=== PATIENT | female | born 1950 | race Caucasian/White ===

== ENCOUNTER 2017-03-15 22:58 | Emergency (ER) | payer OTHER ==
[~2017-03-15] VITALS: Ht 160 cm; Wt 75.0 kg
[~2017-03-15 22:58] MED LIST: CALC1TAB53 PO; COZA50TA PO; FISH100020 PO; IBUP-232 PO; METO50TA PO; VITA100T65 PO
[2017-03-15 23:01] VITALS: BP 183/95; PULSE 66; RESP 18; TEMP 97.9; O2SAT 95
[2017-03-15] MEDS ORDERED: ZOLP10TA3 PO (23:24)
[2017-03-15] MEDS ORDERED: LOSA50TA PO (23:24)
[2017-03-15] MEDS ORDERED: METO50TA PO (23:24)
[2017-03-15 23:29] VITALS: BP 175/89; PULSE 64; RESP 20; O2SAT 96
--- NOTE | 2017-03-15 23:44 | PD ---
HPI . 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 She was subsequently brought to the emergency department for evaluation. She states that she just feels like she cannot walk normally. She states that she feels "drunk." The nurse has been able to ascertain that she probably inadvertently took an Ambien at 9:00 tonight rather than her losartan. The patient has no other complaints. PFSH Past Medical History Diminished Hearing: No Hypertension: Yes Tetanus Vaccination: Unknown Influenza Vaccination: Yes ?: Not Menopausal: Yes : 1 Para: 1 Past Surgical History Cholecystectomy: Yes Social History Alcohol Use: No Tobacco Use: No Substance Use: No Allergies-Medications (Allergen,Severity, Reaction): Coded Allergies: penicillin G (Unverified Allergy, Intermediate, Rash, 03/15/17) Reported Meds & Prescriptions Reported Meds & Active Scripts Active Reported Zolpidem (Zolpidem Tartrate) 10 Mg Tab 10 Mg PO HS PRN Losartan (Losartan Potassium) 50 Mg Tab 50 Mg PO BID Metoprolol Tartrate 50 Mg Tab 50 Mg PO BID Review of Systems Except as stated in HPI: all other systems reviewed are Neg Neurologic: Positive: Change in Mentation Physical Exam Narrative GENERAL: Awake and alert and in no acute distress. SKIN: warm/dry. HEAD: Normocephalic. Atraumatic. EYES: Pupils equal and round. No scleral icterus. No injection or drainage. ENT: No nasal bleeding or discharge. Mucous membranes pink and moist. NECK: Trachea midline. Full range of motion without pain.. CARDIOVASCULAR: Regular rate and rhythm. Heart sounds normal. RESPIRATORY: No accessory muscle use. Clear to auscultation. Breath sounds equal bilaterally. GASTROINTESTINAL: Abdomen soft. Nontender. Bowel sounds present. Nondistended. MUSCULOSKELETAL: No obvious deformities. NEUROLOGICAL: Awake and alert. No obvious cranial nerve deficits. Motor grossly within normal limits. Normal speech. PSYCHIATRIC: Appropriate mood and affect; insight and judgment normal. 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 She was subsequently noted to be acting abnormally per her coworkers. She was brought to us for evaluation. She has no complaints at this time other than feeling "drunk." Her is on his way to pick her up. Diagnosis Primary Impression: Altered mental status Qualified Codes: R40.4 - Transient alteration of awareness Disposition: 01 DISCHARGE HOME Condition: Stable Nora Mary MD Mar 15, 2017 23:44
[2017-03-15] MEDS ORDERED: LOSARTAN 50 MG TAB PO ONE (23:45)
[2017-03-16 00:54] VITALS: BP 166/87; PULSE 64; RESP 13; O2SAT 96
[2017-03-16 01:39] VITALS: BP 167/94; PULSE 65; RESP 17; O2SAT 96
== END 2017-03-16 01:41 | disposition home or self-care (01) ==
LOC: NEPC 22:58
DX: R41.82 Altered mental status, unspecified (principal); I10 Essential (primary) hypertension; Z79.899 Other long term (current) drug therapy; Z88.0 Allergy status to penicillin
CPT/HCPCS: 99283

== ENCOUNTER 2017-10-28 00:04 | Observation (INO) ==
--- NOTE | 2017-10-28 00:43 | ED ---
HPI General Chief Complaint: Arrhythmia/Palpitations Stated Complaint: high blood pressure x today Time Seen by Provider: 10/28/17 00:36 Source: patient Mode of arrival: ambulatory Limitations: no limitations History of Present Illness HPI narrative: Chief complaint is her heart pounding. Onset (ago): hour(s) (2) Duration: constant Context: occurred during rest Associated symptoms: other (Anterior neck pain) Treatments prior to arrival: other (Blood pressure medications) Related Data Home Medications Medication Instructions Recorded Confirmed captopril 12.5 mg PO DAILY 10/28/17 10/28/17 clonidine HCl 0.1 mg PO BID 10/28/17 10/28/17 lisinopril 20 mg PO DAILY 10/28/17 10/28/17 losartan 50 mg PO DAILY 10/28/17 10/28/17 metoprolol tartrate 50 mg PO BID 10/28/17 10/28/17 Allergies Allergy/AdvReac Type Severity Reaction Status Date / Time penicillin G Allergy Intermediate Rash Verified 10/28/17 00:15 metoclopramide [From Reglan] Allergy Swelling Verified 10/28/17 00:17 Review of Systems Except as stated in HPI: all other systems reviewed are negative [facility] Medical History Medical History Dental root implant present (Acute) HTN (hypertension) (Acute) Social History Social History Substance History: No History of Abuse Second Hand Smoke Exposure: No Smoking Status: Never smoker How Often Do You Have a Drink Containing Alcohol: Never Recent Travel in [facility] within the Last 8 Weeks: No Recent Out of Country Travel within the Last 8 Weeks: No Immunization History Tetanus Immunization: Unsure Hx Influenza Vaccine This Season: No Exam Const General: cooperative, healthy appearing, comfortable, no acute distress, well developed and well groomed [facility] Head: normal to inspection, normocephalic and atraumatic Eyes General: appearance normal, both eyes and all related structures Conjunctivae: conjunctivae normal Sclera: sclerae normal Pupils: PERRL EOM: EOM intact bilaterally Neck Neck: normal visual inspection and full ROM Chest Chest: normal inspection of the chest Resp Effort & Inspection: normal respiratory effort and able to speak in complete sentences Auscultation: clear to auscultation bilaterally Cardio Rate: regular rate Heart Sounds: S1 normal and S2 normal Back/Spine/Pelvis Thoracic/Lumbar Spine: thoraco-lumbar ROM normal Skin General: no rashes or lesions noted and turgor normal Neuro General: alert, awake, oriented x3, moves all extremities and CN's II-XI intact bilaterally Extrem General: normal to inspection and full ROM Right upper extremity: edema (trace) Psych Appearance: grossly normal and well kempt Mental Status: mental status grossly normal Speech and Movement: speech and movement normal Mood: congruent mood Affect: normal affect Attitude: cooperative Thought Process: normal Thought Content: normal Judgment: judgment good Course Reevaluation(s) Reevaluation #1: Her blood pressure came down nicely with Nitropaste. I had ordered metoprolol as well but it was held because her heart rate was less than 80. The patient states that the pounding in her chest has resolved as her blood pressure has come down. Consultations Consultation #1: Dr. Allen Time: 03:41 Initial Documented Vital Signs Temperature 97.8 F 10/28/17 00:09 Pulse Rate 68 10/28/17 00:09 Respiratory Rate 18 10/28/17 00:09 Blood Pressure 220/120 H 10/28/17 00:09 Pulse Oximetry 99 10/28/17 00:09 Last Documented Vital Signs Temperature 97.8 F 10/28/17 00:09 Pulse Rate 68 10/28/17 03:49 Respiratory Rate 16 10/28/17 03:49 Blood Pressure 165/95 H 10/28/17 03:49 Pulse Oximetry 96 10/28/17 02:05 Critical Care Time Critical Care Time: Yes Total Critical Care Time: 45 Attestation: Time to perform other separately billable procedures was not included in the critical care time. My time did not include minutes spent treating any other patients simultaneously or on activities that did not directly contribute to the patient's treatment. The services I provided to this patient were to treat and/or prevent clinically significant deterioration due to markedly elevated blood pressure with associated neck discomfort I provided critical care services requiring my management, as noted below: Chart data review, documentation time, medication orders and management, vital sign assessments/reviewing monitor data, ordering and reviewing lab tests, ordering and interpreting/reviewing x-rays and diagnostic studies, care of the patient and discussion of the patient with the admitting physicians Medical Decision Making MDM Narrative Medical decision making narrative: This patient presents with a chief complaint of pounding in her chest. She is also complaining with some anterior neck discomfort. She is markedly hypertensive. Chest pain evaluation is in progress. She is being treated with IV metoprolol and transdermal Nitropaste. I anticipate eventual admission for hypertensive urgency. Differential Diagnosis Differential Diagnosis: Differential diagnosis of palpitations includes but is not limited to anxiety, SVT, aVF with RVR, VT, sinus tachycardia, PVCs Lab Data Lab results reviewed: Yes I reviewed the patient's lab results. Result diagrams: 10/28/17 00:40 10/28/17 00:40 Lab Results 10/28/17 10/28/17 10/28/17 Range/Units 00:40 00:40 00:40 CBC w Diff Auto diff final WBC 7.1 (4.0-11.0) th/mm3 RBC 5.15 (4.00-5.30) mil/mm3 Hgb 15.6 H (11.6-15.3) gm/dL Hct 47.5 H (35.0-46.0) % MCV 92.2 (80.0-100.0) fL MCH 30.2 (27.0-34.0) pg MCHC 32.8 (32.0-36.0) % RDW 12.8 (11.6-17.2) % Plt Count 294 (150-450) th/mm3 MPV 8.9 (7.0-11.0) fL Neut % (Auto) 53.8 (16.0-70.0) % Lymph % (Auto) 32.5 (9.0-44.0) % Robertson % (Auto) 8.8 H (0.0-8.0) % Eos % (Auto) 3.3 (0.0-4.0) % Baso % (Auto) 1.6 (0.0-2.0) % Neut # (Auto) 3.9 (1.8-7.7) th/mm3 Lymph # (Auto) 2.3 (1.0-4.8) th/mm3 Robertson # (Auto) 0.6 (0.0-0.9) th/mm3 Eos # (Auto) 0.2 (0.0-0.4) th/mm3 Baso # (Auto) 0.1 (0.0-0.2) th/mm3 WBC Differential . Differential Comment . D-Dimer Quant (PE/DVT) 0.56 H (0.00-0.50) mg/L FEU Sodium 139 (136-145) meq/L Potassium 3.9 (3.5-5.1) meq/L Chloride 105 (98-107) meq/L Carbon Dioxide 29.0 (21.0-32.0) meq/L Anion Gap 5 (5-15) meq/L BUN 18 (7-18) mg/dL Creatinine 0.91 (0.50-1.00) mg/dL Estimated GFR 62 L (>89) mL/min Random Glucose 96 (74-106) mg/dL Calcium 8.5 (8.5-10.1) mg/dL Troponin I Less than 0.02 L (0.02-0.05) ng/mL Imaging Data Attestation: I personally reviewed and interpreted this imaging study as follows : Radiologist's impression: Chest X-Ray 10/28/17 00:19 CONCLUSION: No acute cardiopulmonary process to explain current clinical symptoms Chest CTA 10/28/17 01:56 CONCLUSION: 1. Minimal pericardial effusion. 2. Otherwise negative. No acute infiltrate or pulmonary embolus. ECG Data EKG Prior to Arrival: No Attestation: I personally reviewed and interpreted this ECG as follows: (EKG shows a normal sinus rhythm with a rate of 69. No acute STT wave changes. EKG #2 is unchanged.) Discharge Plan Discharge Disposition Patient Disposition: 30 Still Patient Discharge Details Diagnosis: Hypertensive urgency Physicians Team ED Provider: Nora Mary Primary Care Provider: Benny Peñaloza V Attending Provider: Sunshine Allen Status ED Status: Admitted Observation Patient
[2017-10-28] MEDS: Metoprolol Inj 5 MG/5 ML Vial IV.PUSH SCH (00:53)
[2017-10-28 01:01] LABS: Baso # (Auto) 0.1 th/mm3 (0.0-0.2); Baso % (Auto) 1.6 % (0.0-2.0); Eos # (Auto) 0.2 th/mm3 (0.0-0.4); Eos % (Auto) 3.3 % (0.0-4.0); Hematocrit 47.5 % (35.0-46.0); Hemoglobin 15.6 gm/dL (11.6-15.3); Lymph # (Auto) 2.3 th/mm3 (1.0-4.8); Lymph % (Auto) 32.5 % (9.0-44.0); Mean Corpuscular HGB Conc 32.8 % (32.0-36.0); Mean Corpuscular Hemoglobin 30.2 pg (27.0-34.0); Mean Corpuscular Volume 92.2 fL (80.0-100.0); Mean Platelet Volume 8.9 fL (7.0-11.0); Mono # (Auto) 0.6 th/mm3 (0.0-0.9); Mono % (Auto) 8.8 % (0.0-8.0); Neut # (Auto) 3.9 th/mm3 (1.8-7.7); Neut % (Auto) 53.8 % (16.0-70.0); Platelet Count 294 th/mm3 (150-450); Red Blood Count 5.15 mil/mm3 (4.00-5.30); Red Cell Distribution Width 12.8 % (11.6-17.2); White Blood Count 7.1 th/mm3 (4.0-11.0)
[2017-10-28 01:06] LABS: Chloride 105 meq/L (98-107); Potassium 3.9 meq/L (3.5-5.1); Sodium 139 meq/L (136-145)
[2017-10-28 01:09] LABS: Anion Gap 5 meq/L (5-15); Blood Urea Nitrogen 18 mg/dL (7-18); Calcium 8.5 mg/dL (8.5-10.1); Glucose,Random 96 mg/dL (74-106)
[2017-10-28 01:13] LABS: Glomerular Filtration Rate 62 mL/min (>89)
--- NOTE | 2017-10-28 01:48 | XR ---
EXAM DATE: 10/28/2017 12:36 AM EDT AGE/SEX: 67 years / Female INDICATIONS: Chest pain. CLINICAL DATA: This is the patient's initial encounter. Patient reports that signs and symptoms have been present for 1 day and indicates a pain score of 3/10. MEDICAL/SURGICAL HISTORY: Hypertension. None. COMPARISON: [facility], CHEST 1V SINGLE AP, 10/24/2017. . FINDINGS: A single AP view of the chest demonstrates the lungs to be symmetrically aerated without evidence of mass, infiltrate or effusion. The cardiomediastinal contours are unremarkable. Osseous structures a re intact. CONCLUSION: No acute cardiopulmonary process to explain current clinical symptoms Electronically signed by: Justus Brumfield MD 10/28/2017 1:47 AM EDT
--- NOTE | 2017-10-28 03:21 | CT ---
EXAM DATE: 10/28/2017 2:49 AM EDT AGE/SEX: 67 years / Female INDICATIONS: High blood pressure. CLINICAL DATA: This is the patient's initial encounter. Patient reports that signs and symptoms have been present for 1 week and indicates a pain score of 0/10. MEDICAL/SURGICAL HISTORY: Hypertension. Dental implant. . RADIATION DOSE: 17.22 CTDI (mGy) COMPARISON: [facility], CT CHEST W/O CONTRAST, 08/10/2015. . TECHNIQUE: Volumetric scanning was performed using a multi-row detector CT scanner during bolus infu mani of 74 ml Omnipaque 350 (iohexol) nonionic water-soluble contrast as a single exam dose. The tejal a was post processed with a variety of visualization algorithms including full volume maximum intensi ty projection and sliding thin slab reformation. Using automated exposure control and adjustment of the mA and/or kV according to patient size, radiation dose was kept as low as reasonably achievable t o obtain optimal diagnostic quality images. DICOM format image data is available electronically for review and comparison. FINDINGS: Pulmonary Arteries: No filling defects are seen in the pulmonary arteries out to the subsegmental ve ssels. The left and right pulmonary arteries are normal in diameter. Lung: No infiltrates seen. Effusion: None. Mediastinum: No evidence of mediastinal or hilar adenopathy. Tiny pericardial effusion. Other: The axilla is unremarkable. CONCLUSION: 1. Minimal pericardial effusion. 2. Otherwise negative. No acute infiltrate or pulmonary embolus. Electronically signed by: Justus Brumfield MD 10/28/2017 3:19 AM EDT
[2017-10-28] MEDS ORDERED: Bisacodyl 10 MG Supp RECTAL PRN (03:40)
[2017-10-28] MEDS ORDERED: Acetaminophen 325 MG Tablet PO PRN (03:40)
[2017-10-28] MEDS ORDERED: Temazepam 15 MG Capsule PO PRN (03:40)
[2017-10-28] MEDS: Heparin - SQ 10,000 UNITS/ML Vial SQ SCH ×3 (04:06→22:12)
[2017-10-28] MEDS: Sod Chloride 0.9% Inj 1,000 ML IV.CONT SCH ×2 (04:06→15:22)
[2017-10-28] MEDS: Senna/Docusate Sodium 8.6/50 MG Tablet PO SCH ×2 (08:45→22:12)
[2017-10-28] MEDS: Metoprolol Tartrate 50 MG Tablet PO SCH ×2 (08:45→22:11)
[2017-10-28] MEDS: Lisinopril 20 MG Tablet PO SCH (08:46)
[2017-10-28] MEDS: Captopril 12.5 MG Tablet PO SCH (08:49)
[2017-10-28] MEDS ORDERED: Ketorolac Inj 30 MG/ML (IVP) Vial IV.PUSH PRN (13:10)
[2017-10-28] MEDS ORDERED: Butalbital/APAP/Caff 50/325/40 MG Tablet PO PRN (13:11)
--- NOTE | 2017-10-28 16:16 | P.HP ---
History of Present Illness Primary Care Physician: Benny Peñaloza MD History of Present Illness: 67-year-old female with history of hypertension presented to the ER with systolic blood pressures of 220. She was in the ER recently with blood pressures up to 180. The reason that she presented however was not for her blood pressure but rather for her ear and neck pain. She feels pain in her bilateral ears with radiation to her neck. She states she has a sore throat and has painful lymphadenopathy anteriorly. She denies any fevers at home. Denies any exposure to strep throat. Review of Systems Constitutional: Reports fatigue, Reports headache(s), Denies body ache(s), Denies chills, Denies fever(s) Eyes: Denies blind spots, Denies blurry vision, Denies bulging eyes Ears, Nose, Mouth, and Throat: Reports ear pain, Reports headache(s), Reports sore throat, Denies bad breath, Denies change in voice, Denies ear discharge, Denies facial pain, Denies hearing loss, Denies hoarseness, Denies nasal congestion, Denies nasal discharge, Denies nasal obstruction, Denies sinus pressure Cardiovascular: Denies chest pain, Denies chest pain at rest, Denies chest pain with activity, Denies excessive sweating, Denies fainting, Denies fast heart rate, Denies foot swelling, Denies generalized swelling, Denies irregular heart rhythm, Denies leg pain with activity, Denies leg sores, Denies leg swelling, Denies lightheadedness, Denies radiating jaw, neck or arm pain, Denies rapid, pounding, or irregular heartbeat, Denies shortness of breath, Denies shortness of breath with activity, Denies shortness of breath when lying down, Denies shortness of breath causing sudden awakening, Denies slow heart rate, Denies other Respiratory: Denies change in phlegm color, Denies chest congestion, Denies cough, Denies coughing up blood, Denies excessive phlegm production, Denies pain on inspiration, Denies pain with cough, Denies shortness of breath, Denies shortness of breath with activity, Denies snoring, Denies stridor, Denies wheezing, Denies other Gastrointestinal: Denies abdominal pain, Denies belching, Denies black, tarry stools, Denies bloating, Denies bright, red blood in stools, Denies change in bowel habits, Denies constant urge to pass stool, Denies change in stools, Denies coffee ground vomit, Denies constipation, Denies cramping, Denies difficulty swallowing, Denies excessive passing of gas, Denies feeling full early, Denies heartburn, Denies incontinent of stools, Denies loose stools, Denies nausea, Denies pain with swallowing, Denies vomiting, Denies vomiting blood, Denies other Musculoskeletal: Denies abnormal walking, Denies back pain, Denies body aches, Denies decreased muscle mass, Denies deformity, Denies joint pain, Denies joint swelling, Denies limited joint movement, Denies loss of height, Denies muscle cramps, Denies muscle weakness, Denies neck pain, Denies numbness, Denies radiating pain into limb, Denies stiffness, Denies tingling, Denies other Neurologic: Denies abnormal hearing, Denies abnormal movements, Denies abnormal speech, Denies abnormal walking, Denies behavioral changes, Denies burning sensations, Denies confusion, Denies dizziness, Denies fainting, Denies frequent falls, Denies headache(s), Denies lack of coordination, Denies localized weakness, Denies loss of vision, Denies memory loss, Denies numbness, Denies other visual disturbances, Denies radiating pain, Denies restless legs, Denies convulsions, Denies seizure-like activity, Denies sensory deficit, Denies tingling, Denies tingling/numbness/burning sensations, Denies tremor(s), Denies unsteadiness, Denies weakness, Denies other Psychiatric: Denies abnormal sleep pattern, Denies anxiety, Denies behavioral changes, Denies change in appetite, Denies change in sex drive, Denies confusion , Denies depression, Denies difficulty concentrating, Denies hearing things others do not hear, Denies hopelessness, Denies irritability, Denies lack of enjoyment, Denies memory loss, Denies mood swings, Denies panic attacks, Denies paranoia, Denies seeing things others do not see, Denies sensing things others do not sense, Denies tactile hallucinations, Denies thoughts of hurting/killing others, Denies thoughts of hurting/killing yourself, Denies other PMFSH - History History Provided By: Patient - Medical History Medical History: Medical History (Last Reviewed 10/28/17 @ 00:37 by Nora Mary) Dental root implant present HTN (hypertension) - Tobacco History Second Hand Smoke Exposure: No Smoking Status: Never smoker - Alcohol History How Often Do You Have a Drink Containing Alcohol: Never - Substance Use History Substance History: No History of Abuse - Travel History Recent Travel in the [place] Within the Last 8 Weeks: No Recent Travel Out of the Country Within the Last 8 Weeks: No - Immunization History Tetanus Immunization: Unsure Hx Influenza Vaccine This Season: No Medications and Allergies Active Medications: Active Medications Acetaminophen (Tylenol) 650 mg PO Q4H PRN PRN Reason: Temp > 100.4 Acetaminophen/Butalbital/Caffeine (Fioricet 50-325-40) 1 tab PO Q6H PRN PRN Reason: HEADACHE Al Hydroxide/Mg Hydroxide (Milk Of Magnesia Liq) 30 ml PO Q12H PRN PRN Reason: Mild Constipation Bisacodyl (Dulcolax Supp) 10 mg RECTAL DAILY PRN PRN Reason: SEVERE CONSITIPATION Captopril (Capoten) 12.5 mg PO DAILY [facility] Last Admin: 10/28/17 08:49 Dose: 12.5 mg Clonidine HCl (Catapres) 0.1 mg PO BID [facility] Last Admin: 10/28/17 08:45 Dose: 0.1 mg Heparin Sodium (Porcine) (Heparin Inj) 5,000 units SQ Q8H [facility] Last Admin: 10/28/17 12:14 Dose: 5,000 units Sodium Chloride (Ns Inj) 1,000 mls @ 100 mls/hr IV.CONT .Q10H [facility] Last Admin: 10/28/17 15:22 Dose: 100 mls/hr Ketorolac Tromethamine (Toradol Inj) 15 mg IV.PUSH Q6H PRN PRN Reason: PAIN SCALE 6 TO 10 Stop: 11/02/17 13:09 Last Admin: 10/28/17 13:48 Dose: 15 mg Lactulose (Lactulose Liq) 30 ml PO DAILY PRN PRN Reason: SEVERE CONSITIPATION Lisinopril (Prinivil) 20 mg PO DAILY [facility] Last Admin: 10/28/17 08:46 Dose: 20 mg Losartan Potassium (Cozaar) 50 mg PO DAILY [facility] Last Admin: 10/28/17 08:46 Dose: 50 mg Metoprolol Tartrate (Lopressor) 50 mg PO BID [facility] Last Admin: 10/28/17 08:45 Dose: 50 mg Ondansetron HCl (Zofran Inj) 4 mg IV.PUSH Q6H PRN PRN Reason: NAUSEA OR VOMITING Last Admin: 10/28/17 10:41 Dose: 4 mg Senna/Docusate Sodium (Zulma-Colace) 1 tab PO BID [facility] Last Admin: 10/28/17 08:45 Dose: 1 tab Sennosides (Senokot) 17.2 mg PO Q12H PRN PRN Reason: Moderate Constipation Sodium Chloride (Ns Flush) 2 ml IV.FLUSH UNSCH PRN PRN Reason: FLUSH AFTER USING IV ACCESS Temazepam (Restoril) 15 mg PO HS PRN PRN Reason: INSOMNIA Allergies Allergy/AdvReac Type Severity Reaction Status Date / Time penicillin G Allergy Intermediate Rash Verified 10/28/17 00:15 metoclopramide [From Reglan] Allergy Swelling Verified 10/28/17 00:17 Home Medications Medication Instructions Recorded Confirmed Type captopril 12.5 mg PO DAILY 10/28/17 10/28/17 History clonidine HCl 0.1 mg PO BID 10/28/17 10/28/17 History lisinopril 20 mg PO DAILY 10/28/17 10/28/17 History losartan 50 mg PO DAILY 10/28/17 10/28/17 History metoprolol tartrate 50 mg PO BID 10/28/17 10/28/17 History Exam Vital signs: Vital Signs 10/28/17 00:09 10/28/17 00:19 10/28/17 01:03 Temperature 97.8 F Pulse Rate 68 71 63 Respiratory Rate 18 18 Blood Pressure 220/120 H 224/112 H 174/92 H Pulse Oximetry 99 98 97 10/28/17 01:20 10/28/17 02:05 10/28/17 03:49 Temperature Pulse Rate 60 68 Respiratory Rate 18 16 Blood Pressure 160/89 H 165/95 H Pulse Oximetry 97 96 10/28/17 04:17 10/28/17 07:00 10/28/17 08:00 Temperature 98.5 F 96.8 F L 96.9 F L Pulse Rate 62 60 65 Respiratory Rate 16 16 21 Blood Pressure 151/88 H 158/82 H 179/91 H Pulse Oximetry 98 96 96 10/28/17 12:00 Temperature 98.7 F Pulse Rate 59 L Respiratory Rate 20 Blood Pressure 125/69 Pulse Oximetry 95 Intake & Output 10/27/17 10/28/17 10/28/17 18:59 06:59 18:59 Intake Total 1000 / 1000 Output Total 400 / 400 Balance 600 / 600 Weight 84.1 kg Intake: IV 1000 / 1000 NS Inj 1,000 ML @ 100 mls/hr IV 1000 / 1000 .CONT .Q10H [facility] Rx#:[id number] Oral 0 / 0 Output: Urine 400 / 400 Other: # Voids 1 Date of Last Bowel Movement 10/27/17 10/27/17 Narrative: GENERAL: Alert and oriented 2, uncomfortable due to headache SKIN: Warm and dry. HEAD: Atraumatic. Normocephalic. Anterior cervical lymphadenopathy with tenderness to palpation, remove oropharynx soft palate is erythematous EYES: Pupils equal and round. No scleral icterus. No injection or drainage. ENT: No nasal bleeding or discharge. Mucous membranes pink and moist. NECK: Trachea midline. No JVD. CARDIOVASCULAR: Regular rate and rhythm. RESPIRATORY: No accessory muscle use. Clear to auscultation. Breath sounds equal bilaterally. GASTROINTESTINAL: Abdomen soft, non-tender, nondistended. Hepatic and splenic margins not palpable. MUSCULOSKELETAL: Extremities without clubbing, cyanosis, or edema. No obvious deformities. NEUROLOGICAL: Awake and alert. No obvious cranial nerve deficits. Motor grossly within normal limits. Five out of 5 muscle strength in the arms and legs. Normal speech. PSYCHIATRIC: Appropriate mood and affect; insight and judgment normal. Results - Labs CBC & Chem 7: 10/28/17 00:40 10/28/17 00:40 Labs: Laboratory Results - last 24 hr 10/28/17 10/28/17 10/28/17 00:40 00:40 00:40 CBC w Diff Auto diff final WBC 7.1 RBC 5.15 Hgb 15.6 H Hct 47.5 H MCV 92.2 MCH 30.2 MCHC 32.8 RDW 12.8 Plt Count 294 MPV 8.9 Neut % (Auto) 53.8 Lymph % (Auto) 32.5 [place] % (Auto) 8.8 H Eos % (Auto) 3.3 Baso % (Auto) 1.6 Neut # (Auto) 3.9 Lymph # (Auto) 2.3 [place] # (Auto) 0.6 Eos # (Auto) 0.2 Baso # (Auto) 0.1 WBC Differential . Differential Comment . D-Dimer Quant (PE/DVT) 0.56 H Sodium 139 Potassium 3.9 Chloride 105 Carbon Dioxide 29.0 Anion Gap 5 BUN 18 Creatinine 0.91 Estimated GFR 62 L Random Glucose 96 Calcium 8.5 Troponin I Less than 0.02 L 10/28/17 10/28/17 03:30 06:40 CBC w Diff WBC RBC Hgb Hct MCV MCH MCHC RDW Plt Count MPV Neut % (Auto) Lymph % (Auto) [place] % (Auto) Eos % (Auto) Baso % (Auto) Neut # (Auto) Lymph # (Auto) [place] # (Auto) Eos # (Auto) Baso # (Auto) WBC Differential Differential Comment D-Dimer Quant (PE/DVT) Sodium Potassium Chloride Carbon Dioxide Anion Gap BUN Creatinine Estimated GFR Random Glucose Calcium Troponin I Less than 0.02 L Less than 0.02 L - Imaging Impressions Chest X-Ray 10/28/17 00:19 CONCLUSION: No acute cardiopulmonary process to explain current clinical symptoms Chest CTA 10/28/17 01:56 CONCLUSION: 1. Minimal pericardial effusion. 2. Otherwise negative. No acute infiltrate or pulmonary embolus. Caprini VTE Risk Assessment Caprini VTE Risk Assessment: Moderate/High Risk (score >= 2) Caprini Risk Assessment Model: Point Value = 1 Point Value = 2 Point Value = 3 Point Value = 5 Age 41-60 Minor surgery BMI > 25 kg/m2 Swollen legs Varicose veins or History of unexplained or recurrent spontaneous Oral contraceptives or hormone replacement Sepsis (< 1 month) Serious lung disease, including pneumonia (< 1 month) Abnormal pulmonary function Acute myocardial infarction Congestive heart failure (< 1 month) History of inflammatory bowel disease Medical patient at bed rest Age 61-74 Arthroscopic surgery Major open surgery (> 45 min) Laparoscopic surgery (> 45 min) Malignancy Confined to bed (> 72 hours) Immobilizing plaster cast Central venous access Age >= 75 History of VTE Family history of VTE Factor V Leiden Prothrombin [id number] Lupus anticoagulant Anticardiolipin antibodies Elevated serum homocysteine Heparin-induced thrombocytopenia Other congenital or acquired thrombophilia Stroke (< 1 month) Elective arthroplasty Hip, pelvis, or leg fracture Acute spinal cord injury (< 1 month) Prophylaxis Regimen: Total Risk Factor Score Risk Level Prophylaxis Regimen 0-1 Low Early ambulation 2 Moderate Order ONE of the following: *Sequential Compression Device (SCD) *Heparin 5000 units SQ BID 3-4 Higher Order ONE of the following medications: *Heparin 5000 units SQ TID *Enoxaparin/Lovenox 40 mg SQ daily (WT < 150 kg, CrCl > 30 mL/min) *Enoxaparin/Lovenox 30 mg SQ daily (WT < 150 kg, CrCl > 10-29 mL/min) *Enoxaparin/Lovenox 30 mg SQ BID (WT < 150 kg, CrCl > 30 mL/min) AND/OR *Sequential Compression Device (SCD) 5 or more Highest Order ONE of the following medications: *Heparin 5000 units SQ TID (Preferred with Epidurals) *Enoxaparin/Lovenox 40 mg SQ daily (WT < 150 kg, CrCl > 30 mL/min) *Enoxaparin/Lovenox 30 mg SQ daily (WT < 150 kg, CrCl > 10-29 mL/min) *Enoxaparin/Lovenox 30 mg SQ BID (WT < 150 kg, CrCl > 30 mL/min) AND *Sequential Compression Device (SCD) Assessment and Plan - Plan Hypertensive urgency Present in the ER but has resolved overnight Continue with current treatment plan Otalgia with neck pain Patient complains of bilateral ear pain and pain at base of skull, also painful anterior cervical lymph nodes We will cover for common upper respiratory infections given hospitalization for a possibly simple issue Single dose of Solu-Medrol to address inflammatory pain Monitor CBC if level increases, or headaches worsen, consider meningitis ( currently no photophobia) DVT prophylaxis SCDs
[2017-10-28] MEDS ORDERED: Azithromycin Inj 500 MG in Sodium Chlor 0.9% Inj 250 ML IV.SIG SCH (17:00)
--- NOTE | 2017-10-28 23:39 | ECG ---
Date Performed: 10/28/2017 Time Performed: 05:31:36 PTAGE: 67 years EKG: Sinus rhythm NORMAL ECG PREVIOUS TRACING : 10/28/2017 03.54 Since the previous tracing, no significant change noted DOCTOR: Dayton Vargas Interpretating Date/Time 10/28/2017 23:38:43
--- NOTE | 2017-10-28 23:42 | ECG ---
Date Performed: 10/28/2017 Time Performed: 03:54:38 PTAGE: 67 years EKG: SINUS BRADYCARDIA POSSIBLE LEFT ATRIAL ENLARGEMENT BORDERLINE LEFT AXIS DEVIATION NONSPECIF IC T-WAVE ABNORMALITY BORDERLINE ECG PREVIOUS TRACING : 10/28/2017 00.35 Since the previous tracing, no significant change noted DOCTOR: Dayton Vargas Interpretating Date/Time 10/28/2017 23:41:10
--- NOTE | 2017-10-28 23:54 | ECG ---
Date Performed: 10/28/2017 Time Performed: 00:35:16 PTAGE: 67 years EKG: Sinus rhythm POSSIBLE LEFT ATRIAL ENLARGEMENT BORDERLINE ECG PREVIOUS TRACING : 10/24/2017 19.16 Compared to previous tracing, criteria for left atrial enl argement DOCTOR: Dayton Vargas Interpretating Date/Time 10/28/2017 23:53:39
[2017-10-29] MEDS: Heparin - SQ 10,000 UNITS/ML Vial SQ SCH ×2 (06:02→12:44)
[2017-10-29 06:03] LABS: Baso # (Auto) 0.1 th/mm3 (0.0-0.2); Baso % (Auto) 1.3 % (0.0-2.0); Eos # (Auto) 0.1 th/mm3 (0.0-0.4); Eos % (Auto) 1.9 % (0.0-4.0); Hematocrit 41.6 % (35.0-46.0); Hemoglobin 14.3 gm/dL (11.6-15.3); Lymph # (Auto) 1.8 th/mm3 (1.0-4.8); Lymph % (Auto) 27.1 % (9.0-44.0); Mean Corpuscular HGB Conc 34.3 % (32.0-36.0); Mean Corpuscular Hemoglobin 31.3 pg (27.0-34.0); Mean Corpuscular Volume 91.2 fL (80.0-100.0); Mean Platelet Volume 8.9 fL (7.0-11.0); Mono # (Auto) 0.7 th/mm3 (0.0-0.9); Mono % (Auto) 10.4 % (0.0-8.0); Neut # (Auto) 3.9 th/mm3 (1.8-7.7); Neut % (Auto) 59.3 % (16.0-70.0); Platelet Count 217 th/mm3 (150-450); Red Blood Count 4.56 mil/mm3 (4.00-5.30); Red Cell Distribution Width 12.7 % (11.6-17.2); White Blood Count 6.6 th/mm3 (4.0-11.0)
[2017-10-29 06:19] LABS: Potassium 3.6 meq/L (3.5-5.1)
[2017-10-29 06:21] LABS: Calcium 7.8 mg/dL (8.5-10.1)
[2017-10-29 06:22] LABS: Carbon Dioxide 26.8 meq/L (21.0-32.0)
[2017-10-29] MEDS: Lisinopril 20 MG Tablet PO SCH (08:23)
[2017-10-29] MEDS: Senna/Docusate Sodium 8.6/50 MG Tablet PO SCH (08:23)
[2017-10-29] MEDS: Metoprolol Tartrate 50 MG Tablet PO SCH (08:23)
[2017-10-29] MEDS: Captopril 12.5 MG Tablet PO SCH (08:24)
[2017-10-29] MEDS ORDERED: ALPRAZolam 0.25 MG Tablet PO PRN (11:38)
--- NOTE | 2017-10-29 15:51 | P.DS ---
Date of admission: 10/28/17 03:44 Primary care physician: Benny Peñaloza MD Brief History from admission: 67-year-old female with history of hypertension presented to the ER with systolic blood pressures of 220. She was in the ER recently with blood pressures up to 180. The reason that she presented however was not for her blood pressure but rather for her ear and neck pain. She feels pain in her bilateral ears with radiation to her neck. She states she has a sore throat and has painful lymphadenopathy anteriorly. She denies any fevers at home. Denies any exposure to strep throat. DS: Medications - Discharge Medications Prescriptions: alprazolam [Xanax] 0.25 mg PO BID PRN 30 Days #30 tab PRN Reason: Anxiety losartan 100 mg PO DAILY 30 Days #30 tab DS: Summary Hospital Course: 67-year-old female admitted for hypertensive urgency who complained of bilateral pain in the back of her neck and ears and anterior cervical lymph nodes. She was started on azithromycin p.o. to cover for upper respiratory infection. Additionally she was given a single dose of Solu-Medrol which this morning seem to relieve her symptoms completely. Her blood pressure has been controlled since last night. She is requesting food and tolerated lunch. She is stable for discharge. - Time Spent with Patient Total time spent providing and/or coordinating discharge services: - Quality: VTE Deep Vein Thrombosis/Pulmonary Embolism Present on Admission: No Exam Vital signs: Vital Signs 10/28/17 16:00 10/28/17 16:40 10/28/17 19:45 Temperature 97.0 F L 97.0 F L Pulse Rate 65 65 Respiratory Rate 21 21 Blood Pressure 167/79 H 167/79 H Pulse Oximetry 95 96 94 L 10/28/17 20:00 10/28/17 20:29 10/29/17 00:00 Temperature 97.8 F 97.9 F Pulse Rate 68 78 Respiratory Rate 18 20 18 Blood Pressure 155/75 H 140/74 Pulse Oximetry 96 96 10/29/17 04:04 10/29/17 08:00 10/29/17 09:00 Temperature 97.1 F L Pulse Rate 67 61 61 Respiratory Rate 18 Blood Pressure 152/74 H Pulse Oximetry 95 96 10/29/17 12:00 Temperature 98.8 F Pulse Rate 75 Respiratory Rate 17 Blood Pressure 160/81 H Pulse Oximetry 94 L Intake & Output 10/28/17 10/29/17 10/29/17 18:59 06:59 18:59 Intake Total 1250 / 1250 0 / 0 Output Total 700 / 700 Balance 550 / 550 0 / 0 Weight 85.3 kg Intake: IV 1000 / 1000 NS Inj 1,000 ML @ 100 mls/hr IV 1000 / 1000 .CONT .Q10H [facility] Rx#:[id number] Oral 250 / 250 0 / 0 Output: Urine 700 / 700 Other: # Voids 2 Date of Last Bowel Movement 10/27/17 10/27/17 Results Procedures completed during hospitalization: none Labs on day of discharge: Labs from last 24 hours 10/29/17 10/29/17 05:40 05:40 CBC w Diff Auto diff final WBC 6.6 RBC 4.56 Hgb 14.3 Hct 41.6 MCV 91.2 MCH 31.3 MCHC 34.3 RDW 12.7 Plt Count 217 MPV 8.9 Neut % (Auto) 59.3 Lymph % (Auto) 27.1 [place] % (Auto) 10.4 H Eos % (Auto) 1.9 Baso % (Auto) 1.3 Neut # (Auto) 3.9 Lymph # (Auto) 1.8 [place] # (Auto) 0.7 Eos # (Auto) 0.1 Baso # (Auto) 0.1 WBC Differential . Differential Comment . Sodium 142 Potassium 3.6 Chloride 110 H Carbon Dioxide 26.8 Anion Gap 5 BUN 13 Creatinine 0.68 Estimated GFR 87 L Random Glucose 94 Calcium 7.8 L - Impressions ITS Impressions Chest X-Ray 10/28/17 00:19 CONCLUSION: No acute cardiopulmonary process to explain current clinical symptoms Chest CTA 10/28/17 01:56 CONCLUSION: 1. Minimal pericardial effusion. 2. Otherwise negative. No acute infiltrate or pulmonary embolus. Discharge Plan - Discharge Disposition Patient Disposition: Discharge Home - Discharge Condition Condition: Good - Discharge Order Discharge Orders: Discharge Order (Routine); Ordered 10/29/17 Ordered By: Papa Gilbert - Physicians Team Primary Care Provider: Benny Peñaloza V Attending Provider: Papa Gilbert Other Providers: [employer]
[2017-10-29] MEDS ORDERED: MethylPREDNISolone Sod Succinate Inj 125 MG/2 ML Vial IV.PUSH ONE (16:30)
== END 2017-10-29 17:57 | disposition home or self-care (01) ==
LOC: PHED 00:04 → PH3 00:04 → PHEDA 00:04 → PH3 05:24
PROVIDERS: ADMIT Family Medicine; ATTEND Family Medicine